=== PATIENT | female | born 1945 | race Caucasian/White ===

== ENCOUNTER 2022-11-19 12:37 | Outpatient (CLI) | payer MEDICARE | END 2022-11-19 12:38 | disposition home or self-care (01) | LOC: CSHMRI 12:37 | PROVIDERS: ATTEND Nurse Practitioner Family | DX: M51.16 Intervertebral disc disorders with radiculopathy, lumbar region (principal); M46.1 Sacroiliitis, not elsewhere classified; M47.26 Other spondylosis with radiculopathy, lumbar region | CPT/HCPCS: 72148 ==